=== PATIENT | male | born 1990 | race African-American/Black ===

== ENCOUNTER 2022-04-16 10:51 | Emergency (ER) | payer OTHER, SELFPAY ==
[2022-04-16 11:23] VITALS: BP 137/70; PULSE 50; RESP 16; TEMP 36.8; O2SAT 97; BMI 27.5
--- NOTE | 2022-04-16 11:38 | ED_ITS ---
HPI - Extremity Problem General Chief complaint: Extremity Injury, Upper Stated complaint: back pain Time Seen by Provider: 04/16/22 11:38 Source: patient and american sign language interpreter Mode of arrival: ambulatory Limitations: language barrier History of Present Illness HPI Narrative: 31-year-old male here with reports of left back pain after lifting at the gym yesterday. Patient denies any radiation of pain. No associated numbness, tingling, weakness. No reports of incontinence or saddle anesthesia. No fevers or chills. Related Data Previous Rx's Medication Instructions Recorded cyclobenzaprine 10 mg tablet 10 mg PO TID PRN muscle spasm #10 04/16/22 tabs Allergies Allergy/AdvReac Type Severity Reaction Status Date / Time SEAFOOD Allergy Severe THROAT Uncoded 06/28/20 19:49 SWELLING Review of Systems Review of Systems: Yes all other systems are reviewed and are negative Constitutional: Constitutional: Reports no additional constitutional complaints, Denies body ache(s), Denies chills, Denies fever(s), Denies headache(s) and Denies weakness Eyes: Eyes: Reports no additional eye complaints and Denies change in vision ENT: Reports system reviewed and no additional complaints, except as do cumented, Denies dizziness, Denies headache(s), Denies nasal congestion, Denies nasal discharge and Denies neck pain Cardiovascular: Cardiovascular: Reports no additional cardiovascular complaints, Denies chest pain, Denies leg edema and Denies dyspnea Respiratory: Respiratory: Reports no additional respiratory complaints, Denies cough and Denies dyspnea Gastrointestinal: Gastrointestinal: Reports no additional gastrointestinal complaints, Denies abdominal pain, Denies diarrhea, Denies nausea and Denies vomiting Genitourinary: Genitourinary: Denies urinary incontinence Musculoskeletal: Musculoskeletal: Reports no additional musculoskeletal complaints, Reports back pain, Denies arthralgias, Denies joint swelling, Denies neck pain, Denies numbness and Denies tingling Integumentary/Breasts: Skin/Breast: Reports system reviewed and no additional complaints, except as docu and Denies rash Neurologic: Reports system reviewed and no additional complaints, except as documented, Denies Abnormal speech present, Denies dizziness, Denies head ache(s), Denies numbness, Denies tingling and Denies weakness PMFSH Past Medical History Attestation statement: The following information was validated with the patient. Source: old records reviewed and nursing notes reviewed Social History Social History Advance Directives: No Advance Directives Information Provided: No Physical Exam Vital Signs: Vital Signs: Last Vital Signs Temp 98.2 F 04/16/22 11:23 Pulse 50 04/16/22 11:23 Resp 16 04/16/22 11:23 BP 137/70 04/16/22 11:23 Pulse Ox 97 04/16/22 11:23 O2 Del Method 04/16/22 11:23 BMI result Body Mass Index 27.5 Const: General: cooperative, healthy appearing, comfortable and no acute distress Orientation/consciousness: patient oriented x3 Limitations: no limitations HEENT: Head: Yes normal to inspection Ears: hearing grossly normal bilaterally General nose exam: Normal external nose present Face and sinus: Yes normal facial exam Mouth: Normal oral and palatal mucosa present Throat: Yes posterior oropharynx normal Eyes: General: appearance normal, both eyes and all related structures Pu pils: Equal, round and reactive pupils present Neck: Neck: Yes normal visual inspection Chest: Chest palpation & inspection: normal inspection of the chest Resp: Effort & Inspection: normal respiratory effort Auscultation: clear to auscultation bilaterally Cardio: Rate: regular rate Rhythm: regular rhythm Peripheral pulses: Peripheral pulses 2+ throughout GI: Inspection: Yes normal to inspection Palpation (GI): Soft to palpation and nontender Auscultation: normal bowel sounds Back/Spine/Pelvis: Thoracic/Lumbar Spine: thoracic and lumbar spine normal to inspection Back/spine/pelvis image: 1. Palpable muscle spasm. Tenderness over the soft tissue. No midline tenderness, step-offs or deformities. Full range of motion Skin: General skin exam: no rashes or lesions noted Neuro: General: patient oriented x3, no focal motor deficits and normal sensation to monofilament Cranial nerves: Yes Equal, round and reactive pupils present Cognition (Neuro): normal cognition Speech: No Abnormal speech present Gait exam (Neuro): Normal gait present Motor exam (neuro): 5/5 motor strength present throughout Extrem: General: Yes normal to inspection MDM - Extremity (Nontraumatic) MDM Narrative Medical decision making narrative: 31-year-old male here with left mid back pain after lifting at the gym yesterday. Exam is consistent with musculoskeletal pain. No neurological deficits or red flag symptoms. Patient will be treated with anti-inflammatory and low-dose muscle relaxant as well as rest. Reviewed worrisome signs and symptoms when to return to the emergency department. Comfortable discharge home. Medical Records Attestation: I reviewed the patient's medical records. Lab Data Attestation: I reviewed the patient's lab results. Discharge Plan Discharge Clinical Impression: Muscle strain of left upper back Patient Disposition: Home, Self-Care Instructions: Muscle Strain (ED) Additional Instructions: Heat to the area Gentle stretching No gym for 3-4 days Follow-up with primary care doctor for persistent symptoms continue aleve Prescriptions: New cyclobenzaprine 10 mg tablet 10 mg PO TID PRN (Reason: muscle spasm) Qty: 10 0RF Referrals: Physician,Unknown J [Physician] - Stand Alone Forms: Work/School Release Interventions: ED Discharge Assessment Last Done: 04/16/22 11:53 Discharge Date/Time: 04/16/22 11:54 Print Language: [place]
== END 2022-04-16 11:54 | disposition home or self-care (01) ==
PROVIDERS: Emergency Provider Internal Medicine
DX: S29.012A Strain of muscle and tendon of back wall of thorax, initial encounter (principal); X50.0XXA Overexertion from strenuous movement or load, initial encounter; Y93.B1 Activity, exercise machines primarily for muscle strengthening; Y92.9 Unspecified place or not applicable; Y99.9 Unspecified external cause status
CPT/HCPCS: 99282; 99283

== ENCOUNTER 2022-04-26 14:24 | Emergency (ER) | payer OTHER, SELFPAY | END 2022-04-26 16:45 | disposition left against medical advice (07) | PROVIDERS: Emergency Provider Emergency Medicine | DX: M54.9 Dorsalgia, unspecified (principal) ==

== ENCOUNTER 2022-04-29 10:38 | Emergency (ER) | payer OTHER, SELFPAY ==
[2022-04-29 12:57] VITALS: BP 116/74; PULSE 64; RESP 16; TEMP 36.4; O2SAT 98; BMI 27.2
--- NOTE | 2022-04-29 14:58 | ED.BACK ---
HPI - Back Pain/Injury General Chief Complaint: Back Pain/Injury Stated Complaint: back pain Time Seen by Provider: 04/29/22 14:49 Source: patient Mode of arrival: ambulatory Limitations: no limitations History of Present Illness HPI Narrative: 31-year-old [place]-speaking male presenting to the ED with complaints of resolve left upper back pain. Reports that he was at work over the weekend and he lifted something heavy and he was having some left upper back pain/shoulder pain although the pain has resolved. He reports that work made him come here to get a work note saying that he is cleared. He denies any other symptoms complaints or concerns at this time. MD elicited complaint: back pain and back injury Onset (ago): day(s) (2) Timing: now resolved Severity: mild Similar Symptoms Previously: No Quality: aching Location: left upper back Radiation: none Exacerbating factors: none Relieving factors: none Context: while lifting Associated symptoms: denies other symptoms Work related injury: Yes Related Data Previous Rx's Medication Instructions Recorded cyclobenzaprine 10 mg tablet 10 mg PO TID PRN muscle spasm #10 04/16/22 tabs Allergies Allergy/AdvReac Type Severity Reaction Status Date / Time SEAFOOD Allergy Severe THROAT Uncoded 06/28/20 19:49 SWELLING Review of Systems Review of Systems: Constitutional : No trauma, No Weight loss, No Fever, No Chills, ENT/Mouth : No Hearing loss, No Ear Pain, No Nasal Congestion, No Sinus Pain, No Hoarseness, No sore throat, No Rhinorrhea, No Swallowing Difficulty Cardiovascular : No Chest Pain, No SOB Respiratory : No Cough, No Dyspnea Gastrointestinal : No Nausea, No Vomiting, No Diarrhea, No abdominal Pain, No Hematochezia, No Melena Genitourinary : No Dysuria, No Urinary Frequency, No Hematuria, No Urinary or Bowel Incontinence/retention Musculoskeletal : + Back pain, No neck pain, No joint stiffness, No joint swelling Skin : No Skin Lesions, No rash or signs of infection Neuro : No Weakness, No radiation, No Numbness, No Paresthesias, No headache, no loss of bowel or bladder incontinence, no saddle anesthesia, Focal weakness, No radiation Denies history of IV drug usage. Yes all other systems are reviewed and are negative PMFSH Past Medical History Attestation statement: The following information was validated with the patient. Source: old records reviewed and nursing notes reviewed Social History Social History Advance Directives: No Advance Directives Information Provided: No Physical Exam Vital Signs: Vital Signs: Last Vital Signs Temp 97.6 F 04/29/22 12:57 Pulse 64 04/29/22 12:57 Resp 16 04/29/22 12:57 BP 116/74 04/29/22 12:57 Pulse Ox 98 04/29/22 12:57 O2 Del Method 04/29/22 12:57 BMI result Body Mass Index 27.2 vital signs have been reviewed as normal and appeared to be correct. Blood pressure normal. Heart rate normal. Respiration rate normal. Temperature normal. Oxygen saturation normal. Appearance: Alert. Oriented X3. No acute distress. Head: Normal external exam. Normocephalic. Atraumatic. Eyes: PERRLA. EOMI. Conjunctiva and sclera normal. Eyelids normal. ENT: EAC normal. TM's Normal. Pharynx normal. Uvula midline. Moist mucous membranes. No trismus noted. No drooling noted. No muffled voice noted. Neck: Normal inspection. Neck supple. FROM. No adenopathy. Thyroid Normal. No meningeal signs. No neck mass noted. CVS: Normal heart rate and rhythm. Heart sound normal. No murmurs noted. Pulses normal throughout. Respiratory: No respiratory distress. Painless inspiration. Breath sounds normal. No wheezes/rales/rhonchi noted. Chest nontender. No accessory muscle usage noted or decreased air movement noted. Abdomen: Soft and nontender. Bowel sounds normal in all 4 quadrants. No distention noted. No organomegaly noted. No visible injury noted. Back: No CVA tenderness. Full range of motion noted. No obvious deformities, or edema. Full ROM in back and lower extremities. 5/5 strength hip extension/flexion, abduction, adduction. Straight leg raise test negative on right; Straight leg raise test negative on left; Reflexes normal ankle and knee bilaterally; EHL motor strength normal bilaterally. No rashes/lesion/induration/fluctuance or signs infection noted. Skin: Skin warm and dry. Normal skin color. Normal skin turgor. No rashes/lesions/lacerations noted. Extremities: Extremities exhibit normal range of motion. Extremities nontender. Neuro: Oriented X 3. No motor deficit. No sensory deficit. Reflexes normal. Patient has a normal steady gait. Course Course Course Narrative: Pt c likely muscular pain, but could be herniated disc. Neuro exam shows no deficits. Not c/w AAA/epidural abscess/dissection.No high risk Hx (Incont, fever, immunosupp, recent surgery/LP, coag, signif trauma, wt loss, puls mass, hx/o Ca, TB, or IVDU) to warrant MRI/CT today. Not c/w Pyelo/UTI/kidney stone/spinal fx. Not cauda equina syndrome. And patient's symptoms completely resolved at this time. Imaging not currently indicated. DC c meds and f/u. MDM - Back Pain/Injury Medical Records Attestation: I reviewed the patient's medical records. Discharge Plan Discharge Clinical Impression: Normal exam Patient Disposition: Home, Self-Care Instructions: Normal Exam (ED) Prescriptions: No Action cyclobenzaprine 10 mg tablet 10 mg PO TID PRN (Reason: muscle spasm) Qty: 10 0RF Referrals: Physician,None [Primary Care Provider] - 2 days (your pcp) Stand Alone Forms: Work/School Release Print Language: [place]
== END 2022-04-29 15:38 | disposition home or self-care (01) ==
PROVIDERS: Emergency Provider Emergency Medicine
DX: Z02.79 Encounter for issue of other medical certificate (principal)
CPT/HCPCS: 99282

== ENCOUNTER 2022-08-26 14:19 | Emergency (ER) | payer OTHER, SELFPAY ==
--- NOTE | ~2022-08-26 | XR_ITS ---
EXAMINATION: XR LUMBOSACRAL SPINE CLINICAL INFORMATION: Back pain after lifting. COMPARISON: None TECHNIQUE: Three views of the lumbosacral spine. FINDINGS: No acute fracture or subluxation. Mild facet arthropathy at L5-S1 with some degree of neural foraminal narrowing. SI joints are symmetric. Nonobstructive bowel gas pattern. Small pelvic phleboliths are noted. XR/XR lumbar spine 2-3V IMPRESSION: No acute fracture or subluxation. Mild facet arthropathy at L5-S1 with some degree of neural foraminal narrowing.
[2022-08-26 17:50] VITALS: BP 129/61; PULSE 85; RESP 20; TEMP 36.5; O2SAT 99; BMI 28.3
--- NOTE | 2022-08-26 17:56 | ED.BACK ---
HPI - Back Pain/Injury General Chief Complaint: Back Pain/Injury Stated Complaint: Back Pain No Injury Time Seen by Provider: 08/26/22 19:12 Related Data Previous Rx's Medication Instructions Recorded cyclobenzaprine 10 mg tablet 10 mg PO TID PRN muscle spasm #10 04/16/22 tabs cyclobenzaprine 10 mg tablet 10 mg PO BEDTIME PRN muscle spasm 08/26/22 7 days #7 tabs naproxen 500 mg tablet 500 mg PO BID PRN pain 7 days #14 08/26/22 tabs prednisone 20 mg tablet 40 mg PO DAILY 5 days #10 tabs 08/26/22 Allergies Allergy/AdvReac Type Severity Reaction Status Date / Time SEAFOOD Allergy Severe THROAT Uncoded 06/28/20 19:49 SWELLING PMFSH Social History Social History Alcohol intake: current Smoked in Last 30 Days: No Use of substances other than those prescribed or required for medical reasons: No Advance Directives: No Advance Directives Information Provided: No Physical Exam Vital Signs: Vital Signs: Last Vital Signs Temp 97.7 F 08/26/22 17:50 Pulse 85 08/26/22 17:50 Resp 20 08/26/22 17:50 BP 129/61 08/26/22 17:50 Pulse Ox 99 08/26/22 17:50 O2 Del Method 08/26/22 17:50 BMI result Body Mass Index 28.3 Course Reevaluation(s) Reevaluation #1: 32-year-old male came in for evaluation of low back pain for 2 days after trying to lift heavy tire, pain is localized in her lower back radiates to the left buttock area, no weakness no numbness, no urinary or stool incontinence, no fever or chills lower back x-ray was ordered from triage and patient was given oxycodone and muscle relaxant. Time: 17:56 Medications Administered Discontinued Medications Generic Name Dose Route Start Last Admin Trade Name Freq PRN Reason Stop Dose Admin Cyclobenzaprine HCl 5 mg 08/26/22 17:55 08/26/22 18:00 Cyclobenzaprine Hcl 5 Mg Tablet PO 08/26/22 17:56 5 mg ONCE ONE Administration Cyclobenzaprine HCl 10 mg 08/26/22 17:58 08/26/22 18:01 Cyclobenzaprine Hcl 10 Mg Tablet PO 08/26/22 17:59 Not Given ONCE ONE Oxycodone HCl 5 mg 08/26/22 17:50 08/26/22 18:00 Oxycodone Hcl Immed Release 5 Mg Tablet PO 08/26/22 17:51 5 mg ONCE ONE Administration Discharge Plan Discharge Clinical Impression: Lumbar radiculopathy Patient Disposition: Home, Self-Care Instructions: Acute Low Back Pain (ED), Lumbar Radiculopathy (ED) Additional Instructions: Recommend not doing any back exercise for at least 6 days. Follow-up with your primary care provider for re-evaluation and possibility of physical therapy. Recommend resting from sports activities. Return to the ED immediately for any abdominal pain, nausea, vomiting, fever, chills, flank pain, dysuria, hematuria,testicular pain, urinary/bowel incontinenc, or any other concerning symptoms. Prescriptions: New naproxen 500 mg tablet 500 mg PO BID PRN (Reason: pain) 7 Days Qty: 14 0RF prednisone 20 mg tablet 40 mg PO DAILY 5 Days Qty: 10 0RF cyclobenzaprine 10 mg tablet 10 mg PO BEDTIME PRN (Reason: muscle spasm) 7 Days Qty: 7 0RF Rx Instructions: side effect is drowsiness. No Action cyclobenzaprine 10 mg tablet 10 mg PO TID PRN (Reason: muscle spasm) Qty: 10 0RF Stand Alone Forms: Work/School Release Interventions: ED Discharge Assessment Last Done: 08/26/22 20:36 Discharge Date/Time: 08/26/22 20:36 Print Language: Japanese
[2022-08-26] MEDS: Cyclobenzaprine HCl 5 MG TABLET PO (18:00)
[2022-08-26] MEDS: oxyCODONE HCl Immed Release 5 MG TABLET PO (18:00)
--- NOTE | 2022-08-26 19:50 | ED.GENADULT ---
HPI - General Adult General Chief complaint: Back Pain/Injury Stated complaint: Back Pain No Injury Time Seen by Provider: 08/26/22 19:12 Source: patient Mode of arrival: ambulatory Limitations: no limitations History of Present Illness HPI narrative: 32 yold male presents to the ED for low back pain that is worse on movement. patient denies any dysuria, hematuria, flank pain, fever, chills, nausea, vomitting, or abdominal pain. Patient admits to heavy deadlifting every day at the gym. patient denies any blunt trauma. Patient denies any urinary/bowel incontinence. patient denies any IV drug use or immunoc compromised diseases. Related Data Previous Rx's Medication Instructions Recorded cyclobenzaprine 10 mg tablet 10 mg PO TID PRN muscle spasm #10 04/16/22 tabs cyclobenzaprine 10 mg tablet 10 mg PO BEDTIME PRN muscle spasm 08/26/22 7 days #7 tabs naproxen 500 mg tablet 500 mg PO BID PRN pain 7 days #14 08/26/22 tabs prednisone 20 mg tablet 40 mg PO DAILY 5 days #10 tabs 08/26/22 Allergies Allergy/AdvReac Type Severity Reaction Status Date / Time SEAFOOD Allergy Severe THROAT Uncoded 06/28/20 19:49 SWELLING Review of Systems Review of Systems: back pain Yes all other systems are reviewed and are negative [facility] Social History Social History Alcohol intake: current Smoked in Last 30 Days: No Use of substances other than those prescribed or required for medical reasons: No Advance Directives: No Advance Directives Information Provided: No Physical Exam ED Vital Signs: Vital Signs - 24 hr 08/26/22 17:50 Temperature 97.7 F Pulse Rate 85 Respiratory Rate 20 Blood Pressure 129/61 Pulse Oximetry 99 Oxygen Delivery Method Room Air BMI result Body Mass Index 28.3 Const General: cooperative, healthy appearing, comfortable, no acute distress, well developed, alert, awake and Physically active Orientation/consciousness: patient oriented x3 HENMT Head: Yes normal to inspection, Yes No palpable skull fracture present, Yes normocephalic, Yes atraumatic and No abrasion Eyes General: appearance normal, both eyes and all related structures Neck Neck: Yes normal visual inspection, Yes full ROM, Yes no lymphadenopathy, Yes no meningeal signs, Yes trachea midline, Yes supple, No anterior neck swelling and No tender Chest Chest palpation & inspection: normal inspection of the chest and normal palpation of entire chest wall Resp Effort & Inspection: normal respiratory effort and able to speak in complete sentences Auscultation: clear to auscultation bilaterally Cardio Jugular venous distension: no JVD Heart sounds: S1 normal heart sound present and S2 normal heart sound present GI Inspection: Yes normal to inspection and No abdominal wall ecchymosis Palpation (GI): Soft to palpation, not firm, nontender, no guarding and not rigid General: No CVA tenderness and Yes no CVA tenderness Back/Spine/Pelvis Back: no CVA tenderness, No CVA tenderness and back tenderness (lumbar tenderness) Skin General skin exam: no rashes or lesions noted and elasticity normal Neuro General: patient oriented x3, gait normal, tone normal, no meningeal signs and CN's II-XI intact bilaterally Cranial nerves: Yes CN's II-XII intact bilaterally Extrem General: Yes normal to inspection and Yes full ROM Psych Appearance: grossly normal, well kempt and not disheveled Course Course Course Narrative: Lumbar Xray ordered. patient given oxycodone and flexeril in waiting room Reevaluation(s) Reevaluation #1: Xray shows arthritis Time: 19:58 Medications Administered Discontinued Medications Generic Name Dose Route Start Last Admin Trade Name Faisal PRN Reason Stop Dose Admin Cyclobenzaprine HCl 5 mg 08/26/22 17:55 08/26/22 18:00 Cyclobenzaprine Hcl 5 Mg Tablet PO 08/26/22 17:56 5 mg ONCE ONE Administration Cyclobenzaprine HCl 10 mg 08/26/22 17:58 08/26/22 18:01 Cyclobenzaprine Hcl 10 Mg Tablet PO 08/26/22 17:59 Not Given ONCE ONE Oxycodone HCl 5 mg 08/26/22 17:50 08/26/22 18:00 Oxycodone Hcl Immed Release 5 Mg Tablet PO 08/26/22 17:51 5 mg ONCE ONE Administration Medical Decision Making [facility] Narrative Medical decision making narrative: Lumbar radiculopathy Discharge Plan Discharge Clinical Impression: Lumbar radiculopathy Patient Disposition: Home, Self-Care Instructions: Acute Low Back Pain (ED), Lumbar Radiculopathy (ED) Additional Instructions: Recommend not doing any back exercise for at least 6 days. Follow-up with your primary care provider for re-evaluation and possibility of physical therapy. Recommend resting from sports activities. Return to the ED immediately for any abdominal pain, nausea, vomiting, fever, chills, flank pain, dysuria, hematuria,testicular pain, urinary/bowel incontinenc, or any other concerning symptoms. Prescriptions: New naproxen 500 mg tablet 500 mg PO BID PRN (Reason: pain) 7 Days Qty: 14 0RF prednisone 20 mg tablet 40 mg PO DAILY 5 Days Qty: 10 0RF cyclobenzaprine 10 mg tablet 10 mg PO BEDTIME PRN (Reason: muscle spasm) 7 Days Qty: 7 0RF Rx Instructions: side effect is drowsiness. No Action cyclobenzaprine 10 mg tablet 10 mg PO TID PRN (Reason: muscle spasm) Qty: 10 0RF Stand Alone Forms: Work/School Release Interventions: ED Discharge Assessment Last Done: 08/26/22 20:36 Discharge Date/Time: 08/26/22 20:36 Print Language: Japanese
== END 2022-08-26 20:36 | disposition home or self-care (01) ==
PROVIDERS: Emergency Provider Internal Medicine
DX: M54.16 Radiculopathy, lumbar region (principal); M54.50 Low back pain, unspecified
CPT/HCPCS: 72100; 99283; 99284

== ENCOUNTER 2022-12-19 08:08 | Emergency (ER) | payer OTHER, SELFPAY ==
--- NOTE | ~2022-12-19 | XR_ITS ---
EXAMINATION: XR CHEST CLINICAL INFORMATION: Cough, difficulty breathing. COMPARISON: None TECHNIQUE: 2 views of the chest were obtained. FINDINGS: No significant abnormality is noted involving the heart, lungs, mediastinum, bony thorax or soft tissues. XR/XR chest 2V IMPRESSION: No acute cardiopulmonary process.
[2022-12-19 08:13] VITALS: BP 98/65; PULSE 58; RESP 18; TEMP 36.6; O2SAT 99; BMI 28.3
[2022-12-19 08:41] LABS: IDNOW Serial# 9DB6401D
[2022-12-19 08:42] LABS: COVID-19 Test Positive (Negative)
--- NOTE | 2022-12-19 08:47 | ED.FEVER ---
HPI - Fever General Chief Complaint: Fever Stated Complaint: fever Time Seen by Provider: 12/19/22 08:31 Source: patient Mode of arrival: ambulatory Limitations: no limitations History of Present Illness HPI Narrative: 32-year-old male with a history of asthma presents to the ER with complaints of intermittent fever, cough, headache, body aches, difficulty breathing for 3 days. Patient to go home COVID test and it was positive. Patient has had to use his inhaler twice in the last 3 days. Patient denies any chest pain, vomiting, diarrhea, abdominal pain, neck pain or neck stiffness, skin rash Related Data Previous Rx's Medication Instructions Recorded cyclobenzaprine 10 mg tablet 10 mg PO TID PRN muscle spasm #10 04/16/22 tabs cyclobenzaprine 10 mg tablet 10 mg PO BEDTIME PRN muscle spasm 08/26/22 7 days #7 tabs naproxen 500 mg tablet 500 mg PO BID PRN pain 7 days #14 08/26/22 tabs prednisone 20 mg tablet 40 mg PO DAILY 5 days #10 tabs 08/26/22 Allergies Allergy/AdvReac Type Severity Reaction Status Date / Time SEAFOOD Allergy Severe THROAT Uncoded 06/28/20 19:49 SWELLING Review of Systems Review of Systems: Yes all other systems are reviewed and are negative Constitutional: Constitutional: Reports no additional constitutional complaints, Reports body ache(s), Denies chills, Reports fever(s), Reports headache(s) and Denies weakness Eyes: Eyes: Reports no additional eye complaints and Denies change in vision ENT: Reports system reviewed and no additional complaints, except as documented, Denies dizziness, Reports headache(s), Denies nasal congestion, Denies nasal discharge and Denies neck pain Cardiovascular: Cardiovascular: Reports no additional cardiovascular complaints, Denies chest pain, Denies leg edema and Reports dyspnea Respiratory: Respiratory: Reports no additional respiratory complaints, Reports cough and Reports dyspnea Gastrointestinal: Gastrointestinal: Reports no additional gastrointestinal complaints, Denies abdominal pain, Denies diarrhea, Denies nausea and Denies vomiting Genitourinary: Genitourinary: Denies urinary incontinence Musculoskeletal: Musculoskeletal: Reports no additional musculoskeletal complaints, Denies back pain, Denies arthralgias, Denies joint swelling, Denies neck pain, Denies numbness and Denies tingling Integumentary/Breasts: Skin/Breast: Reports system reviewed and no additional complaints, except as docu and Denies rash Neurologic: Reports system reviewed and no additional complaints, except as documented, Denies Abnormal speech present, Denies dizziness, Reports headache(s), Denies numbness, Denies tingling and Denies weakness PMFSH Past Medical History Attestation statement: The following information was validated with the patient. Source: old records reviewed and nursing notes reviewed Social History Social History Alcohol intake: current Advance Directives: No Advance Directives Information Provided: Yes Physical Exam Vital Signs: Vital Signs: Last Vital Signs Temp 98 F 12/19/22 08:13 Pulse 58 12/19/22 08:13 Resp 18 12/19/22 08:13 BP 98/65 12/19/22 08:13 Pulse Ox 99 12/19/22 08:13 O2 Del Method 12/19/22 08:13 BMI result Body Mass Index 28.3 Const: General: cooperative, healthy appearing, comfortable and no acute distress Orientation/consciousness: patient oriented x3 Limitations: no limitations HEENT: Head: Yes normal to inspection Ears: hearing grossly normal bilaterally and TM's normal bilaterally General nose exam: Normal external nose present Face and sinus: Yes normal facial exam Mouth: Normal oral and palatal mucosa present Throat: Yes posterior oropharynx normal, Yes tonsils normal and Yes uvula midline Eyes: General: appearance normal, both eyes and all related structures Pupils: Equal, round and reactive pupils present Neck: Neck: Yes normal visual inspection Chest: Chest palpation & inspection: normal inspection of the chest Resp: Effort & Inspection: normal respiratory effort Auscultation: clear to auscultation bilaterally Cardio: Rate: regular rate Rhythm: regular rhythm Peripheral pulses: Peripheral pulses 2+ throughout GI: Inspection: Yes normal to inspection Palpation (GI): Soft to palpation and nontender Auscultation: normal bowel sounds Back/Spine/Pelvis: Thoracic/Lumbar Spine: thoracic and lumbar spine normal to inspection Skin: General skin exam: no rashes or lesions noted Neuro: General: patient oriented x3, no focal motor deficits and normal sensation to monofilament Cranial nerves: Yes Equal, round and reactive pupils present Cognition (Neuro): normal cognition Speech: No Abnormal speech present Gait exam (Neuro): Normal gait present Motor exam (neuro): 5/5 motor strength present throughout Extrem: General: Yes normal to inspection, Yes no pedal edema and Yes no calf tenderness Course Course Course Narrative: COVID screen is positive. No hypoxia or tachypnea. Chest x-ray shows no acute finding. Patient recommend to continue supportive care at home as well as albuterol MDI as needed. Reviewed worrisome signs and symptoms of when to return to the emergency room. Comfortable plan for discharge home. Medical Decision Making Medical Decision Making [facility] Narrative: 32-year-old male here with 3 days of intermittent fever, cough, difficulty breathing, headache, body aches. Took home COVID test and it was positive. Lungs are clear. Speaking full sentences with no tachypnea. vitals are stable. will obtain COVID screen, chest x-ray Differential Diagnosis Differential Diagnoses: The differential diagnosis associated with the presentation includes less likely PE- perc 0 pneumonia, COVID Lab Data [facility] Lab Attestation statement: I reviewed the patient's lab results. Labs: Lab Results 12/19/22 Range/Units 08:22 COVID-19 (JOE) Positive A (Negative) COVID-19 Clin Com See Note Independent Interpretation I performed an independent interpretation of an: Plain X-Ray Radiology Impression Discussion of test interpretation with radiology: I have reviewed the radiologist's reading. Radiologist Impression: [place] [id number] XRay Report Signed Patient: Joe Faith MR#: [id number] : 1990 Acct:[id number] Age/Sex: 32 / M ADM Date: 12/19/22 Loc: .ED Attending Dr: Ordering Physician: Lida Pickering NP Date of Service: 12/19/22 Procedure(s): XR chest 2V Accession Number(s): [id number] cc: Lida Pickering NP~ EXAMINATION: XR CHEST CLINICAL INFORMATION: Cough, difficulty breathing. COMPARISON: None TECHNIQUE: 2 views of the chest were obtained. FINDINGS: No significant abnormality is noted involving the heart, lungs, mediastinum, bony thorax or soft tissues. XR/XR chest 2V IMPRESSION: No acute cardiopulmonary process. Discharge Plan Discharge Clinical Impression: COVID-19 Patient Disposition: Home, Self-Care Instructions: COVID-19 (Coronavirus Disease 2019) (ED) Additional Instructions: your COVID test is positive. Your symptoms are typical of a COVID infection you should not be working if you have a fever you should alternate Motrin and Tylenol for any pain or fever increase fluids at home Prescriptions: No Action cyclobenzaprine 10 mg tablet 10 mg PO TID PRN (Reason: muscle spasm) Qty: 10 0RF naproxen 500 mg tablet 500 mg PO BID PRN (Reason: pain) 7 Days Qty: 14 0RF prednisone 20 mg tablet 40 mg PO DAILY 5 Days Qty: 10 0RF cyclobenzaprine 10 mg tablet 10 mg PO BEDTIME PRN (Reason: muscle spasm) 7 Days Qty: 7 0RF Rx Instructions: side effect is drowsiness. Referrals: Physician,Unknown J [Primary Care Provider] - Stand Alone Forms: Work/School Release Print Language: Maltese
== END 2022-12-19 09:39 | disposition home or self-care (01) ==
PROVIDERS: Emergency Provider Emergency Medicine
DX: U07.1 COVID-19 (principal); R51.9 Headache, unspecified; R06.00 Dyspnea, unspecified
CPT/HCPCS: 71046; 87635; 99283; 99284